=== PATIENT | male | born 1940 | race American Indian/Alaskan Native ===

== ENCOUNTER 2017-04-19 06:55 | Observation (INO) | payer MEDICARE ==
[2017-04-19] MEDS ORDERED: Bupivacaine-Epi 0.25%-1:200,000 PF Inj ONE (09:12)
[2017-04-19] MEDS ORDERED: Liquid Adhesive TOP ONE (09:13)
[2017-04-19] MEDS ORDERED: Bupivacaine 0.5% Inj(30mL) ONE (09:13)
[2017-04-19] MEDS ORDERED: Midazolam 2 MG/2 ML VIAL ONE (10:06)
[2017-04-19] MEDS ORDERED: Propofol 10 mg/ml Inj (20 ML) ONE (10:06)
[2017-04-19] MEDS ORDERED: Succinylcholine 200 mg/10 ml Inj IV ONE (10:27)
[2017-04-19] MEDS ORDERED: Rocuronium 10 mg/ml (5 ml) ONE (10:27)
[2017-04-19] MEDS ORDERED: ePHEDrine 50 mg/ml Inj ONE (10:28)
[2017-04-19] MEDS ORDERED: Neostigmine Methylsulfate 3mg/3ml Syringe IV ONE (11:57)
[2017-04-19] MEDS ORDERED: HYDROmorphone 0.5 mg/0.5 ml ISec IVP PRN (12:11)
[2017-04-19] MEDS ORDERED: Oxycodone/Acetaminophen 5/325 mg Tab PO PRN (12:13)
[2017-04-19] MEDS ORDERED: Sodium Chloride 0.9% 1,000 ML IV SCH (12:15)
--- NOTE | 2017-04-19 12:18 | PCM.SURG1 ---
Surgeon's Initial Post Op Note - Surgeon's Notes Surgeon: Dr. Rios Obiee Report Developer: Dr. Chong PGY2, Dr. Norris PGY2 Type of Anesthesia: General Endo Pre-Operative Diagnosis: left inguinal hernia Operative Findings: see dictation Post-Operative Diagnosis: same Operation Performed: open left inguinal hernia repair w/ mesh; excision of ilioinguinal nerve Specimen/Specimens Removed: ilioinguinal nerve. hernia sac Estimated Blood Loss: EBL {In ML}: 5 Date of Surgery/Procedure: 04/19/17 Time of Surgery/Procedure: 10:30
[2017-04-19] MEDS ORDERED: HYDROmorphone 0.5 mg/0.5 ml ISec ONE (12:43)
[2017-04-19 14:37] LABS: EOS % 0.2 % (1.5-5.0); GRAN # 3.96 (1.4-6.5); GRAN % 83.4 % (50.0-68.0); HEMOGLOBIN 9.6 gm/dL (14.0-18.0); LYMPH # 0.4 (1.2-3.4); LYMPH % 8.6 % (22.0-35.0); MEAN CELL VOLUME 97.7 fL (80.0-105.0); MEAN CORPUSCULAR HEMOGLOBIN 31.7 pg (25.0-35.0); MEAN CORPUSCULAR HGB CONC 32.4 g/dl (31.0-37.0); MEAN PLATELET VOLUME 11.4 fl (7.0-11.0); MONO # 0.4 (0.1-0.6); MONO % 7.8 % (1.0-6.0); PLATELET COUNT 88 10^3/uL (120.0-450.0); RBC 3.03 10^6/uL (3.5-6.1); RED CELL DISTRIBUTION WIDTH 15.7 % (11.5-14.5); WHITE BLOOD COUNT 4.8 10^3/ul (4.5-11.0)
[2017-04-19 14:42] LABS: ALB/GLOB RATIO 1.1 (1.1-1.8); ALBUMIN 3.2 g/dL (3.0-4.8); CALCIUM 8.4 mg/dL (8.4-10.5)
[2017-04-19 14:43] LABS: ARTERIAL BLOOD GAS HCO3 20.3 mmol/L (21-28); ARTERIAL BLOOD GAS HEMOGLOBIN 9.8 g/dL (11.7-17.4); ARTERIAL BLOOD GAS O2 CAPACITY 13.7 mL/dl (16-24); ARTERIAL BLOOD GAS O2 CONTENT 13.6 ML/dl (15-23); ARTERIAL BLOOD GAS O2 SAT 99.4 % (95-98); ARTERIAL BLOOD GAS PCO2 36 mm/Hg (35-45); ARTERIAL BLOOD GAS PH 7.36 (7.35-7.45); ARTERIAL BLOOD GAS TCO2 21.4 mmol.L (22-28)
--- NOTE | 2017-04-19 14:43 | CP.PCM.PN ---
Subjective - Date & Time of Evaluation Date of Evaluation: 04/19/17 Time of Evaluation: 14:29 - Subjective Subjective: called by nurse pt is c/o cp intermittent precordial , pt s/p hernia repair , pt is obtunded pupils are [place] HR is 47, [facility] 54.rhythm sinus bradycardia. with 1ist degree block. Bp 128/74 pulse ox 100%.pt has extensive cardiac hx with low EF 30% . and is on amiodarone. Objective - Vital Signs/Intake and Output Vital Signs (last 24 hours): Temp Pulse Resp BP Pulse Ox 98.2 F 50 L 18 124/79 98 04/19/17 13:35 04/19/17 13:35 04/19/17 13:35 04/19/17 13:35 04/19/17 13:35 Intake and Output: 04/19/17 04/19/17 06:59 18:59 Intake Total 150 Balance 150 - Medications Medications: Current Medications Ondansetron HCl (Zofran Inj) 4 mg IVP ONCE PRN PRN Reason: Nausea/Vomiting Oxycodone/Acetaminophen (Percocet 5/325 Mg Tab) 1 tab PO Q4H PRN PRN Reason: Pain, moderate (4-7) Stop: 04/22/17 12:14 - Constitutional Appears: Other (OBTUNDED) - Eye Exam Pupil Exam: Miosis - ENT Exam ENT Exam: Mucous Membranes Moist - Neck Exam Additional comments: pt is obtunded. - Respiratory Exam Respiratory Exam: Clear to Ausculation Bilateral - Cardiovascular Exam Cardiovascular Exam: Bradycardia - GI/Abdominal Exam GI & Abdominal Exam: Normal Bowel Sounds - Neurological Exam Additional comments: obtundede , can be arroused. - Skin Skin Exam: Dry Assessment and Plan - Assessment and Plan (Free Text) Assessment: cp / bradycardia. hx of cad. chf EF 30%. s/p hernia repair. Plan: pt was given narcain HR improved to 54, but cp is still there nitro S/L GIVEN X2.pt improved with cp. CALLED dr NIEVES and DR jones. labs cbc cmp, cardiac iso abg done. called Dr rocio knutson for admission.
[2017-04-19 14:53] LABS: TROPONIN I 0.02 ng/mL
[2017-04-19 14:58] LABS: CK-MB 3.2 ng/mL (0.0-3.6)
--- NOTE | 2017-04-19 15:29 | RAD ---
HISTORY: POST OP CHEST PAIN COMPARISON: No prior. FINDINGS: LUNGS: No active pulmonary disease. PLEURA: No significant pleural effusion identified, no pneumothorax apparent. CARDIOVASCULAR: Moderate cardiomegaly OSSEOUS STRUCTURES: No significant abnormalities. VISUALIZED UPPER ABDOMEN: Normal. OTHER FINDINGS: None. IMPRESSION: No active disease.
--- NOTE | 2017-04-19 16:23 | CP.PCM.CON ---
History of Present Illness - History of Present Illness History of Present Illness: 76 yo with severe LV systolic dysfunction s/p inguinal hernia repair had some asymptomatic sinus bradycardia with HR 53. BP remained stable at 130/60. Patient is comfortable and is talking over the phone. Bradycardia was assessed by house doctor, Dr. Senior and she called for ICU consult. No chest pain, no SOB , no F/C/S, No N/V/D Review of Systems - Constitutional Constitutional: As Per HPI - EENT Eyes: As Per HPI Nose/Mouth/Throat: As Per HPI - Cardiovascular Cardiovascular: As Per HPI - Respiratory Respiratory: As Per HPI - Gastrointestinal Gastrointestinal: As Per HPI - Reproductive: Male Reproductive:Male: As Per HPI - Musculoskeletal Musculoskeletal: As Per HPI - Neurological Neurological: As Per HPI - Psychiatric Psychiatric: As Per HPI Past Patient History - Infectious Disease Hx of Infectious Diseases: None - Past Medical History & Family History Past Medical History?: Yes - Past Social History Smoking Status: Former Smoker - CARDIAC Hx Angina: Yes Hx Congestive Heart Failure: Yes Hx Pacemaker: No - PULMONARY Hx Respiratory Disorders: No - NEUROLOGICAL Hx Paralysis: No - HEENT Hx HEENT Problems: No - RENAL Hx Chronic Kidney Disease: No - ENDOCRINE/METABOLIC Hx Endocrine Disorders: No - HEMATOLOGICAL/ONCOLOGICAL Hx Blood Transfusions: No - INTEGUMENTARY Hx Dermatological Problems: No - MUSCULOSKELETAL/RHEUMATOLOGICAL Hx Musculoskeletal Disorders: Yes - GASTROINTESTINAL Hx Gall Bladder Disease: Yes Hx Gastritis: Yes - GENITOURINARY/GYNECOLOGICAL Hx Genitourinary Disorders: Yes Hx Prostate Cancer: Yes - PSYCHIATRIC Hx Emotional Abuse: No Hx Physical Abuse: No Hx Substance Use: No - SURGICAL HISTORY Hx Surgeries: Yes - ANESTHESIA Hx Anesthesia Reactions: No Hx Malignant Hyperthermia: No Meds Allergies/Adverse Reactions: Allergies Allergy/AdvReac Type Severity Reaction Status Date / Time No Known Allergies Allergy Verified 04/08/17 08:22 - Medications Medications: Current Medications Ondansetron HCl (Zofran Inj) 4 mg IVP ONCE PRN PRN Reason: Nausea/Vomiting Oxycodone/Acetaminophen (Percocet 5/325 Mg Tab) 1 tab PO Q4H PRN PRN Reason: Pain, moderate (4-7) Stop: 04/22/17 12:14 Physical Exam - Constitutional Appears: Non-toxic - Head Exam Head Exam: ATRAUMATIC, NORMAL INSPECTION, NORMOCEPHALIC - Eye Exam Eye Exam: EOMI, PERRL - Respiratory Exam Respiratory Exam: Clear to Auscultation Bilateral, NORMAL BREATHING PATTERN - Cardiovascular Exam Cardiovascular Exam: REGULAR RHYTHM, +S1, +S2 - GI/Abdominal Exam Additional comments: soft, NT, ND, expected postoperative changes - Rectal Exam Rectal Exam: Deferred, NORMAL INSPECTION Additional comments: not performed - Extremities Exam Additional comments: trace b/l pedal edema - Neurological Exam Neurological exam: Alert, Oriented x3 - Skin Skin Exam: Normal Color, Warm Results - Vital Signs Recent Vital Signs: Last Vital Signs Temp 98.2 F 04/19/17 13:35 Pulse 50 L 04/19/17 13:35 Resp 18 04/19/17 13:35 BP 124/79 04/19/17 13:35 Pulse Ox 98 04/19/17 13:35 - Labs Result Diagrams: 04/19/17 14:25 04/19/17 14:25 Labs: Laboratory Results - last 24 hr 04/19/17 04/19/17 04/19/17 14:25 14:25 14:40 WBC 4.8 RBC 3.03 L Hgb 9.6 L Hct 29.6 L MCV 97.7 MCH 31.7 MCHC 32.4 RDW 15.7 H Plt Count 88 L MPV 11.4 H Gran % 83.4 H Lymph % (Auto) 8.6 L [place] % (Auto) 7.8 H Eos % (Auto) 0.2 L Baso % (Auto) 0.0 Gran # 3.96 Lymph # 0.4 L [place] # 0.4 Eos # 0.0 Baso # 0.00 pCO2 36 pO2 108.0 H HCO3 20.3 L ABG pH 7.36 ABG Total CO2 21.4 L ABG O2 Saturation 99.4 H ABG O2 Content 13.6 L ABG Base Excess -4.6 L ABG Hemoglobin 9.8 L ABG Carboxyhemoglobin 1.6 H POC ABG HHb (Measured) 0.6 ABG Methemoglobin 0.8 ABG O2 Capacity 13.7 L Hgb O2 Saturation 97.0 FiO2 40.0 Sodium 139 Potassium 4.6 Chloride 107 Carbon Dioxide 23 Anion Gap 14 BUN 17 Creatinine 1.6 H Est GFR ( Amer) 51 Est GFR (Non-Af Amer) 42 Random Glucose 92 Calcium 8.4 Total Bilirubin 0.7 AST 45 ALT 37 Alkaline Phosphatase 418 H Lactate Dehydrogenase 568 Total Creatine Kinase 313 H CK-MB (CK-2) 3.2 CK-MB (CK-2) % Cancelled Troponin I 0.02 Total Protein 6.0 Albumin 3.2 Globulin 2.8 Albumin/Globulin Ratio 1.1 Assessment & Plan - Assessment and Plan (Free Text) Assessment: 76 yo with asymptomatic sinus bradycardia. Patient is mentating well, comfortable, not in respiratory or otherwise distress. No chest pain, No pulmonary edema, No JAYNE. First troponin set is negative, no specific ischemic changes on EKG. Second troponin is pending. Dr. Reyes saw patient at bedside and case was discussed with him as well. No need for ICU, but tele may be appropriate. I would proceed with serial CBC, pain control, IS, chest PT, OOB to chair, ealry mobilization if cleared by cardio and surgical service. Please call ICU for re-eval if clinical situation changes, including chest pain, drop in BP or appearance of end organ dysfunction or if other questions arise. DVT/ GI prophylaxis ccm time 40 min
[2017-04-19 16:31] LABS: HEMOGLOBIN 10.5 gm/dL (14.0-18.0); MEAN CELL VOLUME 97.9 fL (80.0-105.0); MEAN CORPUSCULAR HEMOGLOBIN 31.2 pg (25.0-35.0); MEAN CORPUSCULAR HGB CONC 31.8 g/dl (31.0-37.0); MEAN PLATELET VOLUME 11.9 fl (7.0-11.0); RBC 3.37 10^6/uL (3.5-6.1); RED CELL DISTRIBUTION WIDTH 15.6 % (11.5-14.5)
--- NOTE | 2017-04-19 17:25 | CP.PCM.CON ---
History of Present Illness - History of Present Illness History of Present Illness: Reason for Cos; Post op chest pain and Bradicardia. 76 year old male possibly non ischemic CMP, CHF PAF on Amiodaroe off anti coagulation being F/u By dr chioma Carr;s group ? dr. Gil who ahd a left inguinal hernia repaired done in recovery are pt. c/o chest pain so cardiology consult called. pt c/o chest now on taking deep breath very little , no pain or heavynedss in chest at rest.No Hx of PND, orthopenia or RODRIGUEZ or angina prior to surgery . lives on second floor and takes stairs. Pmhx. Non Ischemic MP S/p Cath ...at [facility] non Obst CAD...Med treatment HTN Hx of percarditis on colchicine prostate Ca.Hx? Hs of PAF...NSR on amio ( sinus Brady0 previuos cardiac W?u at [facility] ,..cath non Obst CAD EF-15% cmp...refused AICD being F/u with dr. Gil Shx . denies smoking/ Etoh abuse.. Review of Systems - Constitutional Constitutional: As Per HPI - EENT Eyes: As Per HPI Ears: As Per HPI Nose/Mouth/Throat: As Per HPI - Gastrointestinal Gastrointestinal: As Per HPI Past Patient History - Infectious Disease Hx of Infectious Diseases: None - Past Medical History & Family History Past Medical History?: Yes - Past Social History Smoking Status: Former Smoker - CARDIAC Hx Angina: Yes Hx Congestive Heart Failure: Yes Hx Pacemaker: No - PULMONARY Hx Respiratory Disorders: No - NEUROLOGICAL Hx Paralysis: No - HEENT Hx HEENT Problems: No - RENAL Hx Chronic Kidney Disease: No - ENDOCRINE/METABOLIC Hx Endocrine Disorders: No - HEMATOLOGICAL/ONCOLOGICAL Hx Blood Transfusions: No - INTEGUMENTARY Hx Dermatological Problems: No - MUSCULOSKELETAL/RHEUMATOLOGICAL Hx Musculoskeletal Disorders: Yes - GASTROINTESTINAL Hx Gall Bladder Disease: Yes Hx Gastritis: Yes - GENITOURINARY/GYNECOLOGICAL Hx Genitourinary Disorders: Yes Hx Prostate Cancer: Yes - PSYCHIATRIC Hx Emotional Abuse: No Hx Physical Abuse: No Hx Substance Use: No - SURGICAL HISTORY Hx Surgeries: Yes - ANESTHESIA Hx Anesthesia Reactions: No Hx Malignant Hyperthermia: No Meds Allergies/Adverse Reactions: Allergies Allergy/AdvReac Type Severity Reaction Status Date / Time No Known Allergies Allergy Verified 04/08/17 08:22 - Medications Medications: Current Medications Furosemide (Lasix) 20 mg PO DAILY [facility] Non-Formulary Medication (Amiodarone Hydrochloride [Cordarone]) 200 mg PO BID [facility] Non-Formulary Medication (Simvastatin [Simvastatin]) 20 mg PO DAILY [facility] Ondansetron HCl (Zofran Inj) 4 mg IVP ONCE PRN PRN Reason: Nausea/Vomiting Oxycodone/Acetaminophen (Percocet 5/325 Mg Tab) 1 tab PO Q4H PRN PRN Reason: Pain, moderate (4-7) Stop: 04/22/17 12:14 Spironolactone (Aldactone) 25 mg PO DAILY [facility] Tamsulosin HCl (Flomax) 0.4 mg PO DAILY [facility] Physical Exam - Head Exam Head Exam: ATRAUMATIC - ENT Exam ENT Exam: Mucous Membranes Dry - Neck Exam Neck exam: Positive for: Full Rom - Respiratory Exam Respiratory Exam: Accessory Muscle Use - Cardiovascular Exam Cardiovascular Exam: Bradycardia - GI/Abdominal Exam Additional comments: S/p left inguinal hernia surgery .pt is in PACU. Results - Vital Signs Recent Vital Signs: Last Vital Signs Temp 98.2 F 04/19/17 13:35 Pulse 50 L 04/19/17 13:35 Resp 18 04/19/17 13:35 BP 124/79 04/19/17 13:35 Pulse Ox 98 04/19/17 13:35 - Labs Result Diagrams: 04/19/17 16:10 04/19/17 14:25 Labs: Laboratory Results - last 24 hr 04/19/17 04/19/17 04/19/17 14:25 14:25 14:40 WBC 4.8 RBC 3.03 L Hgb 9.6 L Hct 29.6 L MCV 97.7 MCH 31.7 MCHC 32.4 RDW 15.7 H Plt Count 88 L MPV 11.4 H Gran % 83.4 H Lymph % (Auto) 8.6 L [place] % (Auto) 7.8 H Eos % (Auto) 0.2 L Baso % (Auto) 0.0 Gran # 3.96 Lymph # 0.4 L [place] # 0.4 Eos # 0.0 Baso # 0.00 pCO2 36 pO2 108.0 H HCO3 20.3 L ABG pH 7.36 ABG Total CO2 21.4 L ABG O2 Saturation 99.4 H ABG O2 Content 13.6 L ABG Base Excess -4.6 L ABG Hemoglobin 9.8 L ABG Carboxyhemoglobin 1.6 H POC ABG HHb (Measured) 0.6 ABG Methemoglobin 0.8 ABG O2 Capacity 13.7 L Hgb O2 Saturation 97.0 FiO2 40.0 Sodium 139 Potassium 4.6 Chloride 107 Carbon Dioxide 23 Anion Gap 14 BUN 17 Creatinine 1.6 H Est GFR ( Amer) 51 Est GFR (Non-Af Amer) 42 Random Glucose 92 Calcium 8.4 Total Bilirubin 0.7 AST 45 ALT 37 Alkaline Phosphatase 418 H Lactate Dehydrogenase 568 Total Creatine Kinase 313 H CK-MB (CK-2) 3.2 CK-MB (CK-2) % Cancelled Troponin I 0.02 Total Protein 6.0 Albumin 3.2 Globulin 2.8 Albumin/Globulin Ratio 1.1 04/19/17 04/19/17 16:10 16:10 WBC 6.0 D RBC 3.37 L Hgb 10.5 L Hct 33.0 L MCV 97.9 MCH 31.2 MCHC 31.8 RDW 15.6 H Plt Count 101 L MPV 11.9 H Gran % Lymph % (Auto) [place] % (Auto) Eos % (Auto) Baso % (Auto) Gran # Lymph # [place] # Eos # Baso # pCO2 pO2 HCO3 ABG pH ABG Total CO2 ABG O2 Saturation ABG O2 Content ABG Base Excess ABG Hemoglobin ABG Carboxyhemoglobin POC ABG HHb (Measured) ABG Methemoglobin ABG O2 Capacity Hgb O2 Saturation FiO2 Sodium Potassium Chloride Carbon Dioxide Anion Gap BUN Creatinine Est GFR ( Amer) Est GFR (Non-Af Amer) Random Glucose Calcium Total Bilirubin AST ALT Alkaline Phosphatase Lactate Dehydrogenase Total Creatine Kinase CK-MB (CK-2) CK-MB (CK-2) % Troponin I 0.02 Total Protein Albumin Globulin Albumin/Globulin Ratio Assessment & Plan - Assessment and Plan (Free Text) Assessment: 76 year old male admitted for herna surgery , post c/o chest pain Chest pain post op herna surgery, Now resolved Sinus bradicardia .on amio ...but no acute st- t changes. HTN Hx of pericarditis Hx of non ischemic CMP Hx of CAth /2014... non obst. CAD MR/Tr Hx of pulmonary HTN Plan: R/o NC protocol resume Meds echo to assess lv Fx monitor lytes TSH. lipid profile. will foloowe. - Date & Time Date: 04/19/17 Time: 04:00
--- NOTE | 2017-04-19 17:33 | CARD ---
APPROVED REPORT EKG Measurement Heart [id number] <Conclusion> Marked sinus bradycardia with 1st degree AV block Left axis deviation Low voltage QRS Cannot rule out Anteroseptal infarct, age undetermined Abnormal ECG
[2017-04-19 22:08] VITALS: BMI 23.7
--- NOTE | 2017-04-19 22:12 | CP.PCM.HP ---
<Neida Renteria - Last Filed: 04/19/17 22:46> History of Present Illness - History of Present Illness History of Present Illness: This is a 76 year old male who presented with post-op asymptomatic bradycardia and chest pain. Patient was post-op left inguinal hernia repair. Patient states the pain is constant and it does not improve or worsen with inspiration. He denies and lightheadedness, or difficulty breathing. PMH - Liver Disease, CHF, CAD, Gastritis, Gall Bladder Disease, HTN, Pulm HTN PSHx: Cardiac Cath (), Inguinal Hernia Repair (04/19/17) Allergies: NKDA Social Hx: Former Smoker (Quit in 1974) Fam Hx: Unknown Present on Admission - Present on Admission Any Indicators Present on Admission: No Review of Systems - Review of Systems All systems: reviewed and no additional remarkable complaints except - Cardiovascular Cardiovascular: Chest Pain, Chest Pain at Rest. absent: Lightheadedness Past Patient History - Infectious Disease Hx of Infectious Diseases: None - Past Medical History & Family History Past Medical History?: Yes - Past Social History Smoking Status: Former Smoker - CARDIAC Hx Angina: Yes Hx Congestive Heart Failure: Yes Hx Pacemaker: No - PULMONARY Hx Respiratory Disorders: No - NEUROLOGICAL Hx Neurological Disorder: No - HEENT Hx HEENT Problems: No - RENAL Hx Chronic Kidney Disease: No - ENDOCRINE/METABOLIC Hx Endocrine Disorders: No - HEMATOLOGICAL/ONCOLOGICAL Hx Blood Disorders: Yes Hx Cancer: Yes (PROSTATE) Hx Chemotherapy: Yes - INTEGUMENTARY Hx Dermatological Problems: No - MUSCULOSKELETAL/RHEUMATOLOGICAL Hx Musculoskeletal Disorders: Yes Hx Falls: No - GASTROINTESTINAL Hx Gall Bladder Disease: Yes - GENITOURINARY/GYNECOLOGICAL Hx Genitourinary Disorders: Yes - PSYCHIATRIC Hx Emotional Abuse: No Hx Physical Abuse: No Hx Substance Use: No - SURGICAL HISTORY Hx Surgeries: Yes - ANESTHESIA Hx Anesthesia Reactions: No Hx Malignant Hyperthermia: No Meds Home Medications: Home Medication List Medication Instructions Recorded Confirmed Type Amiodarone Hydrochloride 200 mg PO BID #14 tab 04/20/17 Rx [Cordarone] Colchicine [Colcrys] 1 tab PO DAILY #7 04/20/17 04/19/17 Rx Furosemide [Lasix] 20 mg PO DAILY #7 tab 04/20/17 Rx Simvastatin 20 mg PO DAILY #7 04/20/17 Rx Spironolactone [Aldactone] 25 mg PO DAILY #7 tab 04/20/17 Rx Tamsulosin [Flomax] 0.4 mg PO DAILY #7 cap 04/20/17 Rx Allergies/Adverse Reactions: Allergies Allergy/AdvReac Type Severity Reaction Status Date / Time No Known Allergies Allergy Verified 04/08/17 08:22 Physical Exam - Constitutional Appears: Non-toxic - Head Exam Head Exam: ATRAUMATIC, NORMOCEPHALIC - Eye Exam Eye Exam: EOMI - Respiratory Exam Respiratory Exam: Clear to Auscultation Bilateral. absent: Rales, Rhonchi, Wheezes - Cardiovascular Exam Cardiovascular Exam: +S1, +S2, Systolic Murmur - GI/Abdominal Exam GI & Abdominal Exam: Normal Bowel Sounds, Soft. absent: Tenderness - Extremities Exam Extremities exam: Negative for: pedal edema Results - Vital Signs Recent Vital Signs: Last Vital Signs Temp 98.5 F 04/19/17 21:35 Pulse 53 L 04/19/17 21:35 Resp 20 04/19/17 21:35 BP 125/78 04/19/17 21:35 Pulse Ox 98 04/19/17 13:35 - Labs Result Diagrams: 04/19/17 22:09 04/19/17 14:25 Labs: Laboratory Results - last 24 hr 04/19/17 04/19/17 04/19/17 14:25 14:25 14:40 WBC 4.8 RBC 3.03 L Hgb 9.6 L Hct 29.6 L MCV 97.7 MCH 31.7 MCHC 32.4 RDW 15.7 H Plt Count 88 L MPV 11.4 H Gran % 83.4 H Lymph % (Auto) 8.6 L [place] % (Auto) 7.8 H Eos % (Auto) 0.2 L Baso % (Auto) 0.0 Gran # 3.96 Lymph # 0.4 L [place] # 0.4 Eos # 0.0 Baso # 0.00 pCO2 36 pO2 108.0 H HCO3 20.3 L ABG pH 7.36 ABG Total CO2 21.4 L ABG O2 Saturation 99.4 H ABG O2 Content 13.6 L ABG Base Excess -4.6 L ABG Hemoglobin 9.8 L ABG Carboxyhemoglobin 1.6 H POC ABG HHb (Measured) 0.6 ABG Methemoglobin 0.8 ABG O2 Capacity 13.7 L Hgb O2 Saturation 97.0 FiO2 40.0 Sodium 139 Potassium 4.6 Chloride 107 Carbon Dioxide 23 Anion Gap 14 BUN 17 Creatinine 1.6 H Est GFR ( Amer) 51 Est GFR (Non-Af Amer) 42 Random Glucose 92 Calcium 8.4 Total Bilirubin 0.7 AST 45 ALT 37 Alkaline Phosphatase 418 H Lactate Dehydrogenase 568 Total Creatine Kinase 313 H CK-MB (CK-2) 3.2 CK-MB (CK-2) % Cancelled Troponin I 0.02 Total Protein 6.0 Albumin 3.2 Globulin 2.8 Albumin/Globulin Ratio 1.1 04/19/17 04/19/17 16:10 16:10 WBC 6.0 D RBC 3.37 L Hgb 10.5 L Hct 33.0 L MCV 97.9 MCH 31.2 MCHC 31.8 RDW 15.6 H Plt Count 101 L MPV 11.9 H Gran % Lymph % (Auto) [place] % (Auto) Eos % (Auto) Baso % (Auto) Gran # Lymph # [place] # Eos # Baso # pCO2 pO2 HCO3 ABG pH ABG Total CO2 ABG O2 Saturation ABG O2 Content ABG Base Excess ABG Hemoglobin ABG Carboxyhemoglobin POC ABG HHb (Measured) ABG Methemoglobin ABG O2 Capacity Hgb O2 Saturation FiO2 Sodium Potassium Chloride Carbon Dioxide Anion Gap BUN Creatinine Est GFR ( Amer) Est GFR (Non-Af Amer) Random Glucose Calcium Total Bilirubin AST ALT Alkaline Phosphatase Lactate Dehydrogenase Total Creatine Kinase CK-MB (CK-2) CK-MB (CK-2) % Troponin I 0.02 Total Protein Albumin Globulin Albumin/Globulin Ratio Assessment & Plan - Assessment and Plan (Free Text) Assessment: 76 year old male presented with Post-Op CP and Bradycardia Plan: 1 Asymptomatic Bradycardia/ Chest Pain (Post-Op) -admit to [facility] - HbA1c, TSH, Troponins, Lipid Panel -ICU consult/Cardio Consult ( Eneida Manzo) -Stat EKG -Echo -Serial CBC -percocet PRN for pain Control 2. DVT Proph -SCDs - Date & Time Date: 04/19/17 Time: 22:45 <Tiffany Senior - Last Filed: 04/20/17 16:10> Results - Vital Signs Recent Vital Signs: Last Vital Signs Temp 97.8 F 04/20/17 11:45 Pulse 53 L 04/20/17 11:45 Resp 20 04/20/17 11:45 BP 117/73 04/20/17 11:45 Pulse Ox 100 04/20/17 06:00 - Labs Result Diagrams: 04/20/17 13:00 04/20/17 07:00 Labs: Laboratory Results - last 24 hr 04/19/17 04/19/17 04/19/17 16:10 16:10 22:09 WBC 6.0 D 9.0 D RBC 3.37 L 3.41 L Hgb 10.5 L 10.9 L Hct 33.0 L 33.3 L MCV 97.9 97.7 MCH 31.2 32.0 MCHC 31.8 32.7 RDW 15.6 H 15.6 H Plt Count 101 L 108 L MPV 11.9 H 12.5 H Gran % Lymph % (Auto) [place] % (Auto) Eos % (Auto) Baso % (Auto) Gran # Lymph # [place] # Eos # Baso # Sodium Potassium Chloride Carbon Dioxide Anion Gap BUN Creatinine Est GFR ( Amer) Est GFR (Non-Af Amer) Random Glucose Hemoglobin A1c Calcium Phosphorus Magnesium Total Bilirubin AST ALT Alkaline Phosphatase Troponin I 0.02 Total Protein Albumin Globulin Albumin/Globulin Ratio Triglycerides Cholesterol LDL Cholesterol Direct HDL Cholesterol Free T4 Thyroxine (T4) Total T3 TSH 3rd Generation 04/19/17 04/20/17 04/20/17 22:09 07:00 07:00 WBC 7.7 RBC 3.30 L Hgb 10.7 L Hct 32.0 L MCV 97.0 MCH 32.4 MCHC 33.4 RDW 15.6 H Plt Count 125 MPV 12.7 H Gran % 86.1 H Lymph % (Auto) 6.3 L [place] % (Auto) 7.4 H Eos % (Auto) 0.1 L Baso % (Auto) 0.1 Gran # 6.60 H Lymph # 0.5 L [place] # 0.6 Eos # 0.0 Baso # 0.01 Sodium 138 Potassium 4.9 Chloride 106 Carbon Dioxide 23 Anion Gap 14 BUN 20 Creatinine 1.7 H Est GFR ( Amer) 48 Est GFR (Non-Af Amer) 39 Random Glucose 95 Hemoglobin A1c Calcium 8.2 L Phosphorus 3.2 Magnesium 1.8 Total Bilirubin 1.1 AST 37 ALT 28 Alkaline Phosphatase 411 H Troponin I 0.02 Total Protein 5.8 Albumin 3.1 Globulin 2.7 Albumin/Globulin Ratio 1.1 Triglycerides 57 Cholesterol 121 L LDL Cholesterol Direct 45 HDL Cholesterol 57 Free T4 Thyroxine (T4) Total T3 TSH 3rd Generation 04/20/17 04/20/17 04/20/17 07:00 07:00 07:30 WBC RBC Hgb Hct MCV MCH MCHC RDW Plt Count MPV Gran % Lymph % (Auto) [place] % (Auto) Eos % (Auto) Baso % (Auto) Gran # Lymph # [place] # Eos # Baso # Sodium Potassium Chloride Carbon Dioxide Anion Gap BUN Creatinine Est GFR ( Amer) Est GFR (Non-Af Amer) Random Glucose Hemoglobin A1c 5.9 Calcium Phosphorus Magnesium Total Bilirubin AST ALT Alkaline Phosphatase Troponin I Total Protein Albumin Globulin Albumin/Globulin Ratio Triglycerides Cholesterol LDL Cholesterol Direct HDL Cholesterol Free T4 1.36 Thyroxine (T4) 6.2 Total T3 0.57 L TSH 3rd Generation 6.74 H 6.70 H 04/20/17 13:00 WBC 7.8 RBC 3.31 L Hgb 10.3 L Hct 32.6 L MCV 98.5 MCH 31.1 MCHC 31.6 RDW 15.8 H Plt Count 113 L MPV 12.3 H Gran % Lymph % (Auto) [place] % (Auto) Eos % (Auto) Baso % (Auto) Gran # Lymph # [place] # Eos # Baso # Sodium Potassium Chloride Carbon Dioxide Anion Gap BUN Creatinine Est GFR ( Amer) Est GFR (Non-Af Amer) Random Glucose Hemoglobin A1c Calcium Phosphorus Magnesium Total Bilirubin AST ALT Alkaline Phosphatase Troponin I Total Protein Albumin Globulin Albumin/Globulin Ratio Triglycerides Cholesterol LDL Cholesterol Direct HDL Cholesterol Free T4 Thyroxine (T4) Total T3 TSH 3rd Generation Attending/Attestation - Attestation I have personally seen and examined this patient.: Yes I have fully participated in the care of the patient.: Yes I have reviewed all pertinent clinical information: Yes Notes (Text): I have seen and examined patient at bedside. Briefly this is 76 year old male with history of non ischemic cardiomyopathy, CHF secondary to systolic dysfunction (EF~15%), PAF (not on anticoagulation due to procedure scheduled) who had an [employer] after he developed chest pain post left inguinal hernia repair. Patient still has 5/10 chest pain. HR is 50. First set of troponin is normal. EKG showed sinus bradycardia. Patient will be observed in tele to r/o ACS. Will monitor serial ekg and cardiac iso. Cardiology consult appreciated. Upon discharge patient will follow up with Dr Ortega and Dr Gil. Dr Tiffany Senior
[2017-04-19 22:25] LABS: HEMOGLOBIN 10.9 gm/dL (14.0-18.0); MEAN CELL VOLUME 97.7 fL (80.0-105.0); MEAN CORPUSCULAR HGB CONC 32.7 g/dl (31.0-37.0); MEAN PLATELET VOLUME 12.5 fl (7.0-11.0); RBC 3.41 10^6/uL (3.5-6.1); RED CELL DISTRIBUTION WIDTH 15.6 % (11.5-14.5)
[2017-04-20 07:09] VITALS: O2SAT 100
--- NOTE | 2017-04-20 08:08 | CP.PCM.PN ---
Subjective - Date & Time of Evaluation Date of Evaluation: 04/20/17 Time of Evaluation: 08:04 - Subjective Subjective: General Surgery Progress Note for Dr. Govea PT S&E at bedside. ANNMARIE. Dressings were not changed. Wounds were inspected at bedside. Patient tolerating pain well and current denies F/C N/V, CP, and SOB. Yesterday, the patient's HR was managed by Medicine team and patient was given Narcain to increase heartrate to 57bpm. Patient has a history of CAD and CHF with EF 30%. Medicine will follow up. Objective - Vital Signs/Intake and Output Vital Signs (last 24 hours): Temp Pulse Resp BP Pulse Ox 97.5 F L 58 L 19 128/67 100 04/20/17 06:00 04/20/17 06:00 04/20/17 06:00 04/20/17 06:00 04/20/17 06:00 Intake and Output: 04/20/17 04/20/17 06:59 18:59 Intake Total 240 Output Total 100 Balance 140 - Medications Medications: Current Medications Amiodarone HCl (Cordarone) 200 mg PO BID [facility] Last Admin: 04/19/17 18:49 Dose: Not Given Furosemide (Lasix) 20 mg PO DAILY [facility] Non-Formulary Medication (Simvastatin [Simvastatin]) 20 mg PO DAILY [facility] Ondansetron HCl (Zofran Inj) 4 mg IVP ONCE PRN PRN Reason: Nausea/Vomiting Oxycodone/Acetaminophen (Percocet 5/325 Mg Tab) 1 tab PO Q4H PRN PRN Reason: Pain, moderate (4-7) Stop: 04/22/17 12:14 Spironolactone (Aldactone) 25 mg PO DAILY [facility] Tamsulosin HCl (Flomax) 0.4 mg PO DAILY [facility] - Labs Labs: 04/19/17 22:09 04/19/17 14:25 - Constitutional Appears: No Acute Distress - Head Exam Head Exam: NORMAL INSPECTION - Eye Exam Eye Exam: EOMI, Normal appearance - ENT Exam ENT Exam: Mucous Membranes Moist - Neck Exam Neck Exam: Full ROM, Normal Inspection - Respiratory Exam Respiratory Exam: NORMAL BREATHING PATTERN. absent: Accessory Muscle Use, Rhonchi, Wheezes, Respiratory Distress - Cardiovascular Exam Cardiovascular Exam: Bradycardia, REGULAR RHYTHM. absent: Tachycardia - Skin Skin Exam: Dry, Intact, Normal Color Additional comments: incision at left lower quadrant of the abdomen for left inguinal hernia repair is c/d/i. dressings were not changed. no signs of induration, erythema, drainage. Assessment and Plan - Assessment and Plan (Free Text) Assessment: 76 M Left inguinal hernia s/p open inguinal hernia repair POD #1 Plan: d/c once patient tolerates diet. c/w with current pain control continue SCDs bradycardia managed by medicine
[2017-04-20 08:20] LABS: BASO # 0.01 K/mm3 (0.0-2.0); BASO % 0.1 % (0.0-3.0); EOS % 0.1 % (1.5-5.0); GRAN % 86.1 % (50.0-68.0); HEMOGLOBIN 10.7 gm/dL (14.0-18.0); LYMPH # 0.5 (1.2-3.4); LYMPH % 6.3 % (22.0-35.0); MEAN CORPUSCULAR HEMOGLOBIN 32.4 pg (25.0-35.0); MEAN CORPUSCULAR HGB CONC 33.4 g/dl (31.0-37.0); MEAN PLATELET VOLUME 12.7 fl (7.0-11.0); MONO # 0.6 (0.1-0.6); MONO % 7.4 % (1.0-6.0); PLATELET COUNT 125 10^3/uL (120.0-450.0); RED CELL DISTRIBUTION WIDTH 15.6 % (11.5-14.5); WHITE BLOOD COUNT 7.7 10^3/ul (4.5-11.0)
[2017-04-20 08:27] LABS: ALB/GLOB RATIO 1.1 (1.1-1.8); ALBUMIN 3.1 g/dL (3.0-4.8); CALCIUM 8.2 mg/dL (8.4-10.5); MAGNESIUM 1.8 mg/dL (1.7-2.2)
--- NOTE | 2017-04-20 09:54 | CP.PCM.PN ---
Subjective - Date & Time of Evaluation Date of Evaluation: 04/20/17 Time of Evaluation: 07:45 - Subjective Subjective: Denies chest pain, SOB, palpitation. Objective - Vital Signs/Intake and Output Vital Signs (last 24 hours): Temp Pulse Resp BP Pulse Ox 97.5 F L 58 L 19 128/67 100 04/20/17 06:00 04/20/17 06:00 04/20/17 06:00 04/20/17 06:00 04/20/17 06:00 Intake and Output: 04/20/17 04/20/17 06:59 18:59 Intake Total 240 Output Total 100 Balance 140 - Medications Medications: Current Medications Amiodarone HCl (Cordarone) 200 mg PO BID [facility] Last Admin: 04/19/17 18:49 Dose: Not Given Furosemide (Lasix) 20 mg PO DAILY [facility] Non-Formulary Medication (Simvastatin [Simvastatin]) 20 mg PO DAILY [facility] Ondansetron HCl (Zofran Inj) 4 mg IVP ONCE PRN PRN Reason: Nausea/Vomiting Oxycodone/Acetaminophen (Percocet 5/325 Mg Tab) 1 tab PO Q4H PRN PRN Reason: Pain, moderate (4-7) Stop: 04/22/17 12:14 Spironolactone (Aldactone) 25 mg PO DAILY [facility] Tamsulosin HCl (Flomax) 0.4 mg PO DAILY [facility] - Labs Labs: 04/20/17 07:00 04/20/17 07:00 - Constitutional Appears: Well, Non-toxic - Head Exam Head Exam: ATRAUMATIC - Eye Exam Eye Exam: Conjunctival injection - ENT Exam ENT Exam: Mucous Membranes Dry - Neck Exam Neck Exam: Full ROM - Respiratory Exam Respiratory Exam: Clear to Ausculation Bilateral - Cardiovascular Exam Cardiovascular Exam: Bradycardia Additional comments: on amiodarone - GI/Abdominal Exam GI & Abdominal Exam: Soft - Exam External exam: NORMAL EXTERNAL EXAM - Back Exam Back Exam: NORMAL INSPECTION - Skin Skin Exam: Warm Assessment and Plan - Assessment and Plan (Free Text) Assessment: Post op hernia surgery Chest Pain... no evidence of ACS Hx of Cath ... , Non Obstructive CADF Hx of non ischemic CMP, refused AICD Hx of percardiotis HTN Plan: DC tele Dc IVf ok to dc upon Dc pt will f?u with Dr. Gil ( cardilogist). 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 off anti coag . 1 1/2 years.
[2017-04-20] MEDS ORDERED: Non Formulary Medication (Simvastatin [Simvastatin] 20 MG) PO SCH ×2 (10:00)
[2017-04-20 11:46] VITALS: BP 117/73; PULSE 53; RESP 20; TEMP 97.8
--- NOTE | 2017-04-20 12:55 | CARD ---
APPROVED REPORT EXAM: Two-dimensional and M-mode echocardiogram with Doppler and color Doppler. INDICATION Chest Pain Congestive Heart Failure 2D DIMENSIONS Left Atrium (2D)5.6 (1.6-4.0cm)IVSd1.0 (0.7-1.1cm) LVDd5.9 (3.9-5.9cm)PWd1.0 (0.7-1.1cm) LVDs5.6 (2.5-4.0cm)FS (%) 6.1 % LVEF (%)13.2 (>50%) M-Mode DIMENSIONS Aortic Root3.40 (2.2-3.7cm)Aortic Cusp Exc.2.10 (1.5-2.0cm) Aortic Valve AoV Peak Kuoqbcgi291.0cm/Beny Peak GR.10mmHg Mitral Valve MV E Cyerhrbw69.2cm/sMV A Kgyswrfc76.0cm/sE/A ratio2.0 TDI E/Lateral E'0.0E/Medial E'0.0 Tricuspid Valve TR Peak Kzmpldub218bw/sRAP [id number] Peak Gr.48mmHg [id number] LEFT VENTRICLE The Left Ventricle is mildly dilated. There is normal left ventricular wall thickness. The systolic function is severely impaired.EF-15% There is global hypokinesis of the left ventricle. Transmitral Doppler flow pattern is Grade II-pseudonormal filling dynamics. No left ventricle thrombus noted on this study. There is no ventricular septal defect visualized. There is no left ventricular aneurysm. There is no mass noted in the left ventricle. RIGHT VENTRICLE The right ventricle is mildly dilated. There is normal right ventricular wall thickness. Systolic function is mildly to moderately reduced. ATRIA The left atrium is moderately dilated. The right atrium is mildly dilated. The interatrial septum is intact with no evidence for an atrial septal defect. AORTIC VALVE The aortic valve is thickened but opens well. There is moderate aortic regurgitation. There is no aortic valvular stenosis. There is no aortic valvular vegetation. MITRAL VALVE The mitral valve is thickened but opens well. Mitral regurgitation is moderate. There is no mitral valve stenosis. There is no evidence of mitral valve prolapse. TRICUSPID VALVE The tricuspid valve leaflets are thickened , but open well. There is moderate tricuspid regurgitation.RVSP-58 mmof HG. There is no tricuspid valve stenosis. There is no tricuspid valve prolapse or vegetation. PULMONIC VALVE The pulmonary valve is normal in structure. There is mild to moderate pulmonic valvular regurgitation. There is no pulmonic valvular stenosis. GREAT VESSELS The aortic root is normal in size. The ascending aorta is normal in size. The pulmonary artery is normal. The IVC is dilated. PERICARDIAL EFFUSION There is small left pleural effusion. There is a trace to small pericardial effusion. <Conclusion> Four chamber dilatation, EF-15-20% Moderate MR/TR/AR RVSP_58 mmof hg. The IVC is dilated. There is small left pleural effusion. There is a trace to small pericardial effusion. No Vegetation or thrombus noted.
[2017-04-20 13:46] LABS: FREE T4 1.36 ng/dL (0.78-2.19); T4 6.2 ug/dL (5.5-11.0)
[2017-04-20 13:54] LABS: HEMOGLOBIN 10.3 gm/dL (14.0-18.0); MEAN CELL VOLUME 98.5 fL (80.0-105.0); MEAN CORPUSCULAR HEMOGLOBIN 31.1 pg (25.0-35.0); MEAN CORPUSCULAR HGB CONC 31.6 g/dl (31.0-37.0); MEAN PLATELET VOLUME 12.3 fl (7.0-11.0); RBC 3.31 10^6/uL (3.5-6.1); RED CELL DISTRIBUTION WIDTH 15.8 % (11.5-14.5); WHITE BLOOD COUNT 7.8 10^3/ul (4.5-11.0)
[2017-04-20 14:00] LABS: T3 0.57 ng/mL (0.97-1.69)
--- NOTE | 2017-04-20 16:13 | CP.PCM.DIS ---
<LAURITA FINE - Last Filed: 04/21/17 01:14> Provider - Provider Date of Admission: 04/19/17 17:44 Attending physician: Tiffany Senior MD Primary care physician: Stiven Ortega MD Time Spent in preparation of Discharge (in minutes): 45 Hospital Course - Lab Results Lab Results: Most Recent Lab Values WBC 7.8 10^3/ul (4.5-11.0) 04/20/17 13:00 RBC 3.31 10^6/uL (3.5-6.1) L 04/20/17 13:00 Hgb 10.3 gm/dL (14.0-18.0) L 04/20/17 13:00 Hct 32.6 % (42.0-52.0) L 04/20/17 13:00 MCV 98.5 fL (80.0-105.0) 04/20/17 13:00 MCH 31.1 pg (25.0-35.0) 04/20/17 13:00 MCHC 31.6 g/dl (31.0-37.0) 04/20/17 13:00 RDW 15.8 % (11.5-14.5) H 04/20/17 13:00 Plt Count 113 10^3/uL (120.0-450.0) L 04/20/17 13:00 MPV 12.3 fl (7.0-11.0) H 04/20/17 13:00 Gran % 86.1 % (50.0-68.0) H 04/20/17 07:00 Lymph % (Auto) 6.3 % (22.0-35.0) L 04/20/17 07:00 [place] % (Auto) 7.4 % (1.0-6.0) H 04/20/17 07:00 Eos % (Auto) 0.1 % (1.5-5.0) L 04/20/17 07:00 Baso % (Auto) 0.1 % (0.0-3.0) 04/20/17 07:00 Gran # 6.60 (1.4-6.5) H 04/20/17 07:00 Lymph # 0.5 (1.2-3.4) L 04/20/17 07:00 [place] # 0.6 (0.1-0.6) 04/20/17 07:00 Eos # 0.0 (0.0-0.7) 04/20/17 07:00 Baso # 0.01 K/mm3 (0.0-2.0) 04/20/17 07:00 pCO2 36 mm/Hg (35-45) 04/19/17 14:40 pO2 108.0 mm/Hg (80-100) H 04/19/17 14:40 HCO3 20.3 mmol/L (21-28) L 04/19/17 14:40 ABG pH 7.36 (7.35-7.45) 04/19/17 14:40 ABG Total CO2 21.4 mmol.L (22-28) L 04/19/17 14:40 ABG O2 Saturation 99.4 % (95-98) H 04/19/17 14:40 ABG O2 Content 13.6 ML/dl (15-23) L 04/19/17 14:40 ABG Base Excess -4.6 mmol/L (-2.0-3.0) L 04/19/17 14:40 ABG Hemoglobin 9.8 g/dL (11.7-17.4) L 04/19/17 14:40 ABG Carboxyhemoglobin 1.6 % (0.5-1.5) H 04/19/17 14:40 POC ABG HHb (Measured) 0.6 % (0-5) 04/19/17 14:40 ABG Methemoglobin 0.8 % (0.0-3.0) 04/19/17 14:40 ABG O2 Capacity 13.7 mL/dl (16-24) L 04/19/17 14:40 Hgb O2 Saturation 97.0 % (95.0-98.0) 04/19/17 14:40 FiO2 40.0 % 04/19/17 14:40 Sodium 138 mmol/L (132-148) 04/20/17 07:00 Potassium 4.9 mmol/L (3.6-5.0) 04/20/17 07:00 Chloride 106 mmol/L (98-107) 04/20/17 07:00 Carbon Dioxide 23 mmol/L (21-33) 04/20/17 07:00 Anion Gap 14 (10-20) 04/20/17 07:00 BUN 20 mg/dL (7-21) 04/20/17 07:00 Creatinine 1.7 mg/dL (0.5-1.4) H 04/20/17 07:00 Est GFR ( Amer) 48 04/20/17 07:00 Est GFR (Non-Af Amer) 39 04/20/17 07:00 Random Glucose 95 mg/dL (70-110) 04/20/17 07:00 Hemoglobin A1c 5.9 % (4.2-6.5) 04/20/17 07:00 Calcium 8.2 mg/dL (8.4-10.5) L 04/20/17 07:00 Phosphorus 3.2 mg/dL (2.5-4.5) 04/20/17 07:00 Magnesium 1.8 mg/dL (1.7-2.2) 04/20/17 07:00 Total Bilirubin 1.1 mg/dL (0.2-1.3) 04/20/17 07:00 AST 37 U/L (15-59) 04/20/17 07:00 ALT 28 U/L (7-56) 04/20/17 07:00 Alkaline Phosphatase 411 U/L (38-133) H 04/20/17 07:00 Lactate Dehydrogenase 568 U/L (333-699) 04/19/17 14:25 Total Creatine Kinase 313 U/L (35-230) H 04/19/17 14:25 CK-MB (CK-2) 3.2 ng/mL (0.0-3.6) 04/19/17 14:25 CK-MB (CK-2) % Cancelled 04/19/17 14:25 Troponin I 0.02 ng/mL 04/19/17 22:09 Total Protein 5.8 g/dL (5.8-8.3) 04/20/17 07:00 Albumin 3.1 g/dL (3.0-4.8) 04/20/17 07:00 Globulin 2.7 gm/dL 04/20/17 07:00 Albumin/Globulin Ratio 1.1 (1.1-1.8) 04/20/17 07:00 Triglycerides 57 mg/dL (35-160) 04/20/17 07:00 Cholesterol 121 mg/dL (130-200) L 04/20/17 07:00 LDL Cholesterol Direct 45 mg/dL (0-129) 04/20/17 07:00 HDL Cholesterol 57 mg/dL (29-60) 04/20/17 07:00 Free T4 1.36 ng/dL (0.78-2.19) 04/20/17 07:30 Thyroxine (T4) 6.2 ug/dL (5.5-11.0) 04/20/17 07:30 Total T3 0.57 ng/mL (0.97-1.69) L 04/20/17 07:30 TSH 3rd Generation 6.70 mIU/mL (0.46-4.68) H 04/20/17 07:30 - Hospital Course Hospital Course: 76 year old male with PMHx of CHF with EF 13%, CAD, Prostate Ca w/ bone mets, Gastritis, Gall Bladder Disease, and HTN who presented with bradycardia and chest pain on 04/19/17 while in PACU s/p open left inguinal hernia repair. The patient was noted to be obtunded, with pinpoint pupils and bradycardia HR 47. Of note, the pt's HR was 54 upon arrival that morning pre-op. EKG showed sinus bradycardia. The patient was given NARCAN 0.4MG and 2 x SL NITROGLYCERIN TABS. Troponins are negative x3. Dr. Atkinson (ICU), Dr. Reyes (Cardiology) and Dr. Senior (Medicine) were all contacted for management. Patient was transferred to [facility] for further care and management. This morning, the pt has no complaints and states that his chest pain is relieved. Pt denies palpitations, shortness of breath, headaches, dizziness, weakness, fevers, chills, diaphoresis, or any abdominal pain not related to his surgery. Pt denies having a BM or flatus but passe urine with no complaints. 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 The patient's home medications were started, and he progressed with no issues. Thyroid panel showed hypothyroidism, and Cr levels are elevated indicating a probable CKD vs JAYNE. After discharging the patient, Dr. Fine cancelled the prescriptions sent as patient should continue his home meds and not have them altered by the team due to his short stay in the hospital. Patient will be contacted to relay the information and instructed to f/u PMD. - Date & Time of H&P Date of H&P: 04/19/17 Time of H&P: 22:10 Discharge Exam - Head Exam Head Exam: ATRAUMATIC, NORMOCEPHALIC - Eye Exam Eye Exam: EOMI, Normal appearance, PERRL - ENT Exam ENT Exam: Mucous Membranes Moist, Normal Exam - Respiratory Exam Respiratory Exam: Clear to PA & Lateral, NORMAL BREATHING PATTERN. absent: Rales, Rhonchi, Wheezes, Respiratory Distress - Cardiovascular Exam Cardiovascular Exam: Bradycardia, REGULAR RHYTHM, +S1, +S2. absent: JVD - GI/Abdominal Exam GI & Abdominal Exam: Hypoactive Bowel Sounds, Normal Bowel Sounds, Soft. absent : Tenderness - Neurological Exam Neurological exam: Alert, Oriented x3 - Psychiatric Exam Psychiatric exam: Normal Affect, Normal Mood - Skin Skin Exam: Normal Color, Warm Discharge Plan - Follow Up Plan Condition: GOOD Disposition: HOME/ ROUTINE Instructions: Spironolactone (By mouth), Amiodarone (By mouth), Simvastatin ( By mouth), Tamsulosin (By mouth), Laparoscopic Herniorrhaphy (DC) Additional Instructions: Mr. Heller, 1. Please followup with your primary care physician for management of your medications, high blood pressure, and problems with your thyroid, kidney and prostate 2. Please followup with Dr. Gil (Food Preparation Supervisor) for management of your heart failure 3. Please followup with Dr. Rios (Surgeon) for followup of your surgery 4. Your medications: Amiodarone: Take TWO 100mg tabs TWICE A DAY Lasix: Take ONE 10mg tabs DAILY Simvastatin: Take ONE 20mg tab DAILY Spironolactone: Take ONE 25mg tab DAILY Flomax: Take ONE 0.4mg cap DAILY Dicyclomine: Take TWO 10mg caps THREE TIMES A DAY Colcrys: Take ONE 0.6mg tab DAILY Bicalutamide: Take ONE 50mg tab DAILY These meds have been sent to your preferred pharmacy at [facility] on [address] [facility], [place] [address] If you experience any chest pain, shortness of breath, palpitations, drowsiness , weakness, headaches or changes in vision, please return to the ER for further workup Thank you, Dr. Laurita Fine, PGY1 Dr. Tiffany Senior, Attending Physician Referrals: Stiven Ortega MD [Primary Care Provider] - <Tiffany Senior - Last Filed: 04/21/17 14:57> Provider - Provider Date of Admission: 04/19/17 16:28 Attending physician: Tiffany Senior MD Primary care physician: Stiven Ortega MD Hospital Course - Lab Results Lab Results: Most Recent Lab Values WBC 7.8 10^3/ul (4.5-11.0) 04/20/17 13:00 RBC 3.31 10^6/uL (3.5-6.1) L 04/20/17 13:00 Hgb 10.3 gm/dL (14.0-18.0) L 04/20/17 13:00 Hct 32.6 % (42.0-52.0) L 04/20/17 13:00 MCV 98.5 fL (80.0-105.0) 04/20/17 13:00 MCH 31.1 pg (25.0-35.0) 04/20/17 13:00 MCHC 31.6 g/dl (31.0-37.0) 04/20/17 13:00 RDW 15.8 % (11.5-14.5) H 04/20/17 13:00 Plt Count 113 10^3/uL (120.0-450.0) L 04/20/17 13:00 MPV 12.3 fl (7.0-11.0) H 04/20/17 13:00 Gran % 86.1 % (50.0-68.0) H 04/20/17 07:00 Lymph % (Auto) 6.3 % (22.0-35.0) L 04/20/17 07:00 [place] % (Auto) 7.4 % (1.0-6.0) H 04/20/17 07:00 Eos % (Auto) 0.1 % (1.5-5.0) L 04/20/17 07:00 Baso % (Auto) 0.1 % (0.0-3.0) 04/20/17 07:00 Gran # 6.60 (1.4-6.5) H 04/20/17 07:00 Lymph # 0.5 (1.2-3.4) L 04/20/17 07:00 [place] # 0.6 (0.1-0.6) 04/20/17 07:00 Eos # 0.0 (0.0-0.7) 04/20/17 07:00 Baso # 0.01 K/mm3 (0.0-2.0) 04/20/17 07:00 pCO2 36 mm/Hg (35-45) 04/19/17 14:40 pO2 108.0 mm/Hg (80-100) H 04/19/17 14:40 HCO3 20.3 mmol/L (21-28) L 04/19/17 14:40 ABG pH 7.36 (7.35-7.45) 04/19/17 14:40 ABG Total CO2 21.4 mmol.L (22-28) L 04/19/17 14:40 ABG O2 Saturation 99.4 % (95-98) H 04/19/17 14:40 ABG O2 Content 13.6 ML/dl (15-23) L 04/19/17 14:40 ABG Base Excess -4.6 mmol/L (-2.0-3.0) L 04/19/17 14:40 ABG Hemoglobin 9.8 g/dL (11.7-17.4) L 04/19/17 14:40 ABG Carboxyhemoglobin 1.6 % (0.5-1.5) H 04/19/17 14:40 POC ABG HHb (Measured) 0.6 % (0-5) 04/19/17 14:40 ABG Methemoglobin 0.8 % (0.0-3.0) 04/19/17 14:40 ABG O2 Capacity 13.7 mL/dl (16-24) L 04/19/17 14:40 Hgb O2 Saturation 97.0 % (95.0-98.0) 04/19/17 14:40 FiO2 40.0 % 04/19/17 14:40 Sodium 138 mmol/L (132-148) 04/20/17 07:00 Potassium 4.9 mmol/L (3.6-5.0) 04/20/17 07:00 Chloride 106 mmol/L (98-107) 04/20/17 07:00 Carbon Dioxide 23 mmol/L (21-33) 04/20/17 07:00 Anion Gap 14 (10-20) 04/20/17 07:00 BUN 20 mg/dL (7-21) 04/20/17 07:00 Creatinine 1.7 mg/dL (0.5-1.4) H 04/20/17 07:00 Est GFR ( Amer) 48 04/20/17 07:00 Est GFR (Non-Af Amer) 39 04/20/17 07:00 Random Glucose 95 mg/dL (70-110) 04/20/17 07:00 Hemoglobin A1c 5.9 % (4.2-6.5) 04/20/17 07:00 Calcium 8.2 mg/dL (8.4-10.5) L 04/20/17 07:00 Phosphorus 3.2 mg/dL (2.5-4.5) 04/20/17 07:00 Magnesium 1.8 mg/dL (1.7-2.2) 04/20/17 07:00 Total Bilirubin 1.1 mg/dL (0.2-1.3) 04/20/17 07:00 AST 37 U/L (15-59) 04/20/17 07:00 ALT 28 U/L (7-56) 04/20/17 07:00 Alkaline Phosphatase 411 U/L (38-133) H 04/20/17 07:00 Lactate Dehydrogenase 568 U/L (333-699) 04/19/17 14:25 Total Creatine Kinase 313 U/L (35-230) H 04/19/17 14:25 CK-MB (CK-2) 3.2 ng/mL (0.0-3.6) 04/19/17 14:25 CK-MB (CK-2) % Cancelled 04/19/17 14:25 Troponin I 0.02 ng/mL 04/19/17 22:09 Total Protein 5.8 g/dL (5.8-8.3) 04/20/17 07:00 Albumin 3.1 g/dL (3.0-4.8) 04/20/17 07:00 Globulin 2.7 gm/dL 04/20/17 07:00 Albumin/Globulin Ratio 1.1 (1.1-1.8) 04/20/17 07:00 Triglycerides 57 mg/dL (35-160) 04/20/17 07:00 Cholesterol 121 mg/dL (130-200) L 04/20/17 07:00 LDL Cholesterol Direct 45 mg/dL (0-129) 04/20/17 07:00 HDL Cholesterol 57 mg/dL (29-60) 04/20/17 07:00 Free T4 1.36 ng/dL (0.78-2.19) 04/20/17 07:30 Thyroxine (T4) 6.2 ug/dL (5.5-11.0) 04/20/17 07:30 Total T3 0.57 ng/mL (0.97-1.69) L 04/20/17 07:30 TSH 3rd Generation 6.70 mIU/mL (0.46-4.68) H 04/20/17 07:30 Attending/Attestation - Attestation I have personally seen and examined this patient.: Yes I have fully participated in the care of the patient.: Yes I have reviewed all pertinent clinical information, including history, physical exam and plan: Yes Notes (Text): I have seen and examined patient at bedside. Briefly this is 76 year old male with history of non ischemic cardiomyopathy, CHF secondary to systolic dysfunction (EF~15%), PAF (not on anticoagulation) who had an ASH COLLECTOR after he developed chest pain post left inguinal hernia repair. Chest pain has resolved. HR is 50. Bradycardia is secondary to amiodarone. Serial troponin are negative. EKG showed sinus bradycardia. ACS ruled out. Cardiology consult appreciated. Upon discharge patient will follow up with Dr Ortega and Dr Gil. Dr Tiffany Senior
--- NOTE | 2017-05-03 05:27 | OP ---
DATE: 04/19/2017 PREOPERATIVE DIAGNOSIS: Left inguinal hernia. POSTOPERATIVE DIAGNOSIS: Left inguinal hernia. PROCEDURE PERFORMED: 1. Left inguinal hernia repair with mesh. 2. Left ilioinguinal neurectomy. SURGEON: Dr. Rios. ASSISTANTS: Dr. Norris and Dr. Lagunas. TYPE OF ANESTHESIA: General endotracheal anesthesia. ANESTHESIA ADMINISTERED BY: Dr. Snow. ESTIMATED BLOOD LOSS: Minimal. SPECIMEN: Left ilioinguinal nerve and inguinal hernia sac. INDICATIONS: The patient is a 76-year-old male with a history of left groin pain associated with discomfort and radiating to the left thigh. The patient was examined and is noted to have left inguinal hernia and was scheduled for left inguinal hernia repair. DESCRIPTION OF PROCEDURE: The patient was brought to the operating room and placed on the operating room table in the supine position. The patient was connected to EKG, blood pressure, and pulse oximetry monitor. The patient then underwent general endotracheal anesthesia and was prepped and draped in the usual sterile fashion. First, a standard time-out procedure took place and everybody in the room agreed as to the patient's identity, diagnoses, and procedure to be performed. Using lidocaine mixed with Marcaine, the area of the incision was infiltrated and anesthesia was made using #15 blade through the skin, subcutaneous fat, and down to the external oblique aponeurosis. This was carefully dissected out and clamp was placed in order to spread the tissues and anesthesia was made in the transversalis fascia using #15 blade. The transversalis fascia was then carefully elevated and opened all the way down to the external ring of the inguinal canal. Now, the inguinal canal structures and the spermatic cord with its adjacent structures were elevated on a Teddy drain and carefully dissected out in order to separate the hernia sac from the cord. During the dissection, it was noted that there was heavy scar tissue along the superior border of the hernia sac and it appear to be into the scar tissue part of the ilioinguinal nerve. In order to avoid postoperative pain and discomfort that portion of the nerve was then transected and both ends were ligated with 3-0 Vicryl tie. The nerve was sent to the specimen. The hernia sac was carefully dissected down all the way to the bottom, twisted, and ligated and amputated. The preperitoneal space was now carefully mobilized and edges of the transversalis fascia and inguinal ligament was grabbed of Allis clamps. The dual layer PHS mesh was then placed in place with a posterior leaf into the preperitoneal phase and the anterior leaf of keyhole cutout for the spermatic cord on the top of the transversalis fascia and inguinal ligament. The superior leaf was then sutured to the edges of the transversalis fascia and inguinal ligament using 0-Vicryl. The excess mesh was excised. The mesh covered completely. The entire floor of the inguinal canal all the way up to the pubic tubercle and passed the side of the spermatic cord laterally. The spermatic cord was now placed back in the surgical position. The external oblique aponeurosis was sutured at the top of it using 3-0 Vicryl. The area was infiltrated with lidocaine mixed with Toradol. The subcutaneous tissue was infiltrated with lidocaine. The carlos's fascia was closed using 3-0 Vicryl, deep dermal layer was closed using 3 Vicryl, and skin was closed using 4-0 Monocryl. A sterile Dermabond dressing was applied to the wound. The patient tolerated the procedure well and there was no complications. The patient was awakened and transferred to recovery room for further observation. Godwin Rios MD
== END 2017-04-20 16:12 | disposition home or self-care (01) ==
LOC: SDS 06:55 → 2RNO 16:28 → UNDOADMOB 17:44 → UNDODISOB 04-20 16:12
PROVIDERS: ADMIT Hospitalist; ATTEND Hospitalist
DX: R00.1 Bradycardia, unspecified (principal); I42.8 Other cardiomyopathies; I27.2 Other secondary pulmonary hypertension; C79.51 Secondary malignant neoplasm of bone; E03.9 Hypothyroidism, unspecified; I11.0 Hypertensive heart disease with heart failure; I48.0 Paroxysmal atrial fibrillation; T46.2X5A Adverse effect of other antidysrhythmic drugs, initial encounter; Z79.899 Other long term (current) drug therapy; Z85.46 Personal history of malignant neoplasm of prostate; Z87.891 Personal history of nicotine dependence; I50.22 Chronic systolic (congestive) heart failure; I25.119 Atherosclerotic heart disease of native coronary artery with unspecified angina pectoris; K29.70 Gastritis, unspecified, without bleeding; K82.9 Disease of gallbladder, unspecified; I44.0 Atrioventricular block, first degree; K40.90 Unilateral inguinal hernia, without obstruction or gangrene, not specified as recurrent
CPT/HCPCS: 36415; 49505; 64999; 71010; 80053; 80061; 82550; 82553; 82803; 83036; 83615; 83735; 84100; 84439; 84443; 84480; 84484; 85025; 85027; 88302; 88305; 93005; 93306; C1781; G0378; J0330; J0690; J1170; J1885; J2250; J2405; J2704; J2710; J3010; J7040; J7120